=== PATIENT | female | born 1940 | race Caucasian/White ===

== ENCOUNTER 2018-02-23 09:55 | Day surgery (SDC) | payer MEDICARE ==
[2018-02-22 11:50] VITALS: BMI 44.7
[2018-02-23 11:24] LABS: Anion Gap 14 mmol/L (10-20); BUN (Urea Nitrogen) 26 mg/dL (9.8-20.1); Calc. Creatinine Clearance 62 mL/min (70-130); Calcium 9.9 mg/dL (7.8-10.44); Carbon Dioxide 27 mmol/L (23-31); Chloride 103 mmol/L (98-107); Estimated GFR-MDRD 39; Glucose 155 mg/dL (83-110); Potassium 4.1 mmol/L (3.5-5.1); Sodium 140 mmol/L (136-145)
--- NOTE | 2018-02-23 13:22 | EKG ---
Test Reason : PREOP Blood Pressure : / mmHG Vent. Rate : 060 BPM Atrial Rate : 060 BPM P-R Int : 138 ms QRS Dur : 086 ms QT Int : 456 ms P-R-T Axes : 064 -30 023 degrees QTc Int : 456 ms Sinus rhythm with Premature atrial complexes Left axis deviation Abnormal ECG When compared with ECG of 22-SEP-1997 12:02, Premature atrial complexes are now Present Confirmed by CALISTA CARIAS ([id number]) on 02/23/2018 1:22:23 PM Referred By: SUBHASH Confirmed By:CALISTA CARIAS
[2018-02-23] MEDS ORDERED: Morphine 4 MG/ML VIAL ONE (14:33)
--- NOTE | 2018-02-23 15:12 | MRI ---
MRI LUMBAR SPINE WITHOUT CONTRAST: Date: 02/23/18 HISTORY: Radiculopathy. Low back pain. COMPARISON: None. FINDINGS: The aortic contour is not aneurysmal. The kidneys are atrophic. No retroperitoneal adenopathy. The conus medullaris terminates at the superior end plate of L1. There are Modic Type II changes of L3-4. Levels are as follows: T12-L1: Moderate disc desiccation. Moderate facet arthrosis. No neural foraminal or spinal canal narrowing. L1-2: Mild facet arthropathy. Circumferential disc bulge. Mild ligamentum flavum hypertrophy. Spinal canal measures 1.0 cm. Mild bilateral neural foraminal narrowing. L2-3: Moderate to severe facet arthropathy. Circumferential disc bulge. There is moderate left and mild rig ht-sided neural foraminal narrowing. There is abutment of the exiting left-sided nerve root. There is ligamentum flavum hypertrophy. Spinal canal is narrowed to approximately 6.0 mm. L3-4: Severe degenerative disc space height loss. There is anterolisthesis approximately 3.0 mm. Extensive ligamentum flavum hypertrophy. There is impingement upon the thecal sac with the canal measuring less than 4.0 mm. There is moderate left and moderate to severe right-sided neural foraminal narrowing an d abutment exiting traversing nerve roots. L4-5: Moderate degenerative disc space height loss. Circumferential disc osteophyte complex with superimpos ed right lateral recess and subforaminal posterior disc osteophyte complex. There is moderate to frances re right and moderate left-sided neural foraminal narrowing. L5-S1: Mild degenerative disc space height loss. Moderate facet arthrosis. Moderate to severe left-sided and right-sided neural foraminal narrowing with abutment of the traversing nerve roots. Laminectomy changes L4 and L5. IMPRESSION: Extensive spondylosis as described above with multilevel neural foraminal narrowing, as well as spina l canal narrowing. POS: [facility]
== END 2018-02-23 15:37 | disposition home or self-care (01) ==
LOC: SDC/OP 09:55
PROVIDERS: ATTEND Nurse Practitioner Family
DX: M47.26 Other spondylosis with radiculopathy, lumbar region (principal); Z88.0 Allergy status to penicillin; Z88.2 Allergy status to sulfonamides; Z88.8 Allergy status to other drugs, medicaments and biological substances
CPT/HCPCS: 36415; 72148; 93005; 93010; 96374; J2270

== ENCOUNTER 2019-01-07 11:34 | Outpatient (CLI) | payer MEDICARE ==
[~2019-01-07 11:34] MED LIST: ISOVUE-370 76%-LOCM 1 ML ONE
--- NOTE | 2019-01-08 14:47 | CT ---
CT ABDOMEN AND PELVIS WITH CONTRAST: Date: 01/07/19 Multiple axial tomograms obtained through abdomen and pelvis with IV enhancement. INDICATION: Abdominal pain. FINDINGS: Lung bases clear. Liver, spleen, and pancreas are unremarkable. Post cholecystectomy changes. Stomach and duodenum unre markable. Adrenal glands normal. Kidneys show cortical scarring. Dystrophic calcification in posterior right renal cortex. No hydronep hrosis. There is a nonobstructing calculus in the lower pole collecting structures of the right kidne y measuring in the 3 mm range. Ureters are normal caliber. Urinary bladder unremarkable, although the re is dilatation at the urethra bladder junction. Small bowel loops unremarkable. Stool throughout the colon. Diverticulosis of left colon and sigmoid colon. There is a focal fluid dense collection which is circumscribed and somewhat oblong shaped measuring u p to 2.7 cm AP dimension. This is along the wall of the mid sigmoid colon in the left lower quadrant and appears to represent a localized fluid or abscess collection, probably diverticular in origin. No free fluid in the abdomen or pelvis. Aorta is calcified but normal caliber. Evidence of hysterectomy. There is a small umbilical hernia. There is a second anterior abdominal wall hernia just to the right of the umbilicus with abdominal wall defect measuring 1.6 cm. A hernia sac containing mesenteric fat in the subcutaneous tissues measures up to 6-7 cm. Degenerative changes in the spine. Postoperative changes in the spine with pedicle screws. IMPRESSION: 1. Diverticulosis of the left colon and sigmoid colon. A circumscribed fluid dense collection along the wall of the mid sigmoid colon in the left lower quadrant is seen. Circumscribed fluid or abscess collection, probably diverticular in origin, is suspected. 2. Small umbilical hernia and a second anterior abdominal wall hernia to the right umbilicus as desc ribed above. POS: [facility]
== END 2019-01-07 11:35 | disposition home or self-care (01) ==
LOC: BICCT 11:34
PROVIDERS: ATTEND Physician Assistant
DX: R10.9 Unspecified abdominal pain (principal); K57.30 Diverticulosis of large intestine without perforation or abscess without bleeding; K42.9 Umbilical hernia without obstruction or gangrene; K43.9 Ventral hernia without obstruction or gangrene; K63.89 Other specified diseases of intestine
CPT/HCPCS: 74177; 82565; Q9966

== ENCOUNTER 2019-01-24 14:45 | Outpatient (CLI) | payer MEDICARE ==
--- NOTE | 2019-01-24 15:46 | CT ---
CT Lower Ext Lt WO Con History: [Pain. Prior fracture.] Comparison: Ankle radiograph 2017 Findings: Bones: Lateral plate-screw fixation distal fibular fracture. Removal of one of the syndesmo tic screws with fracture of the more craniad syndesmotic screw. Partially-threaded retrograde cannulated screws of the medial malleolus are intact. Evidence of prior rupture of the ATFL. Subtle widening of the syndesmosis. Mild ankle effusion versio n with hindfoot valgus. Healed medial malleolus fracture and posterior malleolar fractures. No acute superimposed fracture or malalignment. Moderate midfoot degenerative changes. Osteopenia the posterior process of the calcaneus. Soft tissues: No subluxation of the peroneal tendons. Type I navicular ossicle. Accessory ossicle bet ween the first and second metatarsal bases. There is lamellar type periosteal bone proliferation along the medial margin distal tibia. Impression: 1. Fracture of the syndesmotic screw with very low-grade lateral talar shift and mild varus angulatio n of the hindfoot. 2. Hypertrophic periosteal new bone formation along the medial margin of the distal tibia suggesting hypertrophic osteoarthropathy. 3. Either accessory ossicle versus calcification Lisfranc ligament between the first and second metat arsal bases. 4. Healed trimalleolar fracture.
== END 2019-01-24 14:46 | disposition home or self-care (01) ==
LOC: BICCT 14:45
PROVIDERS: ATTEND Orthopaedic Surgery
DX: S82.842P Displaced bimalleolar fracture of left lower leg, subsequent encounter for closed fracture with malunion (principal); S92.142D Displaced dome fracture of left talus, subsequent encounter for fracture with routine healing; Z87.81 Personal history of (healed) traumatic fracture

== ENCOUNTER 2019-06-15 09:18 | Outpatient (CLI) | payer MEDICARE ==
--- NOTE | 2019-06-15 11:39 | BD ---
DEXA BONE DENSITY STUDY: Date: 06/15/19 HISTORY: Postmenopausal. 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 The 10 year fracture risk for a major osteoporotic fracture is 22% and for a hip fracture is 5.9%. [facility] are calculated for an untreated patient. POS: [facility]
== END 2019-06-15 09:19 | disposition home or self-care (01) ==
LOC: BICMAMMO 09:18
PROVIDERS: ATTEND Internal Medicine Rheumatology
DX: M81.0 Age-related osteoporosis without current pathological fracture (principal); M85.89 Other specified disorders of bone density and structure, multiple sites
CPT/HCPCS: 77080

== ENCOUNTER 2021-06-25 12:59 | Outpatient (CLI) | payer MEDICARE | END 2021-06-25 13:00 | disposition home or self-care (01) | LOC: BICMAMMO 12:59 | PROVIDERS: ATTEND Internal Medicine Rheumatology | DX: M81.0 Age-related osteoporosis without current pathological fracture (principal); M85.852 Other specified disorders of bone density and structure, left thigh; M85.851 Other specified disorders of bone density and structure, right thigh | CPT/HCPCS: 77080 ==

== ENCOUNTER 2023-08-18 09:53 | Outpatient (CLI) | payer MEDICARE | END 2023-08-18 09:54 | disposition home or self-care (01) | LOC: BICMAMMO 09:53 | PROVIDERS: ATTEND Internal Medicine Rheumatology | DX: M81.0 Age-related osteoporosis without current pathological fracture (principal); M85.851 Other specified disorders of bone density and structure, right thigh | CPT/HCPCS: 77080 ==

== ENCOUNTER 2025-05-07 10:24 | Inpatient (IN) | payer MEDICARE ==
[2025-05-07 12:15] LABS: Hematocrit 29.7 % (36.0-47.0); Hemoglobin 9.4 g/dL (12.0-16.0); Mean Corpuscular Hemoglobin 30.8 pg (27.0-31.0); Mean Corpuscular Volume 97.4 fL (78.0-98.0); Platelet Count 110 10x3/uL (130-400); Red Blood Cell (RBC) Count 3.05 mill/uL (4.20-5.40); White Blood Cell (WBC) Count 8.83 10x3/uL (4.8-10.8)
[2025-05-07 12:30] LABS: ALT (SGPT) 34 U/L (Less than 34); AST (SGOT) 51 U/L (11-34); Albumin 2.6 g/dL (3.1-4.5); Alkaline Phosphatase 111 U/L (40-110); Anion Gap 13 mmol/L (10-20); BUN (Urea Nitrogen) 41 mg/dL (9.8-20.1); Bilirubin, Total 0.4 mg/dL (0.3-1.2); Calc. Creatinine Clearance 0 mL/min (70-130); Calcium 8.4 mg/dL (7.8-10.44); Carbon Dioxide 18 mmol/L (23-31); Chloride 111 mmol/L (98-107); Globulin 2.6 g/dL (2.4-3.5); Glucose 181 mg/dL (83-110); Potassium 4.2 mmol/L (3.5-5.1); Sodium 138 mmol/L (136-145)
[2025-05-07 12:33] LABS: INR-International Normal Ratio 2.0; PTT 45.4 sec (22.9-36.1); Prothrombin Time 23.1 sec (12.0-14.7)
[2025-05-07 12:37] LABS: Anisocytosis SLIGHT = 6-15 cells HPF (0-5); Ovalocytes SLIGHT = 2-5 cells HPF (0-1); Platelet Adequacy Comment Platelets Decreased; Poikilocytosis SLIGHT = 6-15 cells HPF (0-5); Polychromasia SLIGHT = 2-3 cells HPF (0-2)
[2025-05-07] MEDS ORDERED: Acetaminophen 500 MG TAB ONE (12:39)
[2025-05-07 12:41] LABS: Bacteria/HPF 3+ HPF (None Seen); CAUTI Indications for Culture Pelvic or flank pain; Glucose, Urine (Dipstick) Normal (Negative); Leukocyte 500 Leu/uL (Negative); Protein, Urine (Dipstick) 50 mg/dL (Neg-Trace); RBC/HPF 21-50 HPF (0-3); Specific Gravity, Urine 1.017 (1.002-1.036); WBC/HPF Greater than 50 HPF (0-3)
[2025-05-07 12:43] LABS: Urine Culture Reflex Yes Yes
[2025-05-07] MEDS ORDERED: Bisacodyl 10 MG SUPP PR PRN (13:45)
[2025-05-07] MEDS ORDERED: Senokot S 8.6-50 MG TAB PO PRN (13:45)
[2025-05-07] MEDS ORDERED: Ondansetron PF 4 MG/2 ML Vial IVP PRN (13:45)
[2025-05-07] MEDS ORDERED: Dextrose 50% Abboject 50 ML SYRINGE SLOW IVP PRN (13:51)
[2025-05-07] MEDS ORDERED: Glucagon 1 MG/ML KIT IM PRN (13:51)
[2025-05-07] MEDS: VANCOMYCIN 2 GRAM/400 ML BAG 2 GM in Premix 1 BAG IVPB SCH ×2 (15:07→18:44)
[2025-05-07 15:47] LABS: Magnesium 1.6 mg/dL (1.6-2.6)
[2025-05-07 17:37] VITALS: BMI 43.7
[2025-05-07] MEDS ORDERED: Vancomycin Dose by Levels Sliding Scale (Wt > 99) FS SCH (18:15)
[2025-05-07] MEDS: Magnesium 2 GM/50 ML(in water) 2 GM in Premix 1 BAG IVPB SCH (18:43)
[2025-05-07] MEDS ORDERED: Vancomycin 1 GM in Sodium Chloride 0.9% 250 ML 300 ML IVPB SCH (21:00)
[2025-05-07] MEDS: Insulin Glargine 30 UNITS/0.3 ML VIAL SC SCH (21:33)
[2025-05-07] MEDS: Allopurinol 100 MG TAB PO SCH (21:33)
[2025-05-08 06:48] LABS: #Basophils Less than 0.03 10x3/uL (0.0-0.2); #Eosinophils Less than 0.03 10x3/uL (0.0-0.7); #Monocytes 0.82 10x3/uL (0.11-0.59); #Neutrophils 7.24 10x3/uL (1.40-6.50); %Basophils 0.2 % (0.0-1.0); %Eosinophils 0.1 % (0.0-10.0); %Lymphocytes 11.1 % (21.0-51.0); %Monocytes 9.0 % (0.0-10.0); %Neutrophils 79.2 % (42.0-75.0); Hematocrit 32.3 % (36.0-47.0); Hemoglobin 9.8 g/dL (12.0-16.0); Mean Corpuscular Hemoglobin 30.2 pg (27.0-31.0); Mean Corpuscular Volume 99.4 fL (78.0-98.0); Platelet Count 124 10x3/uL (130-400); Red Blood Cell (RBC) Count 3.25 mill/uL (4.20-5.40); White Blood Cell (WBC) Count 9.14 10x3/uL (4.8-10.8)
[2025-05-08 07:01] LABS: Vancomycin, Random 23.9 ug/mL (See Comment)
[2025-05-08 07:04] LABS: ALT (SGPT) 25 U/L (Less than 34); AST (SGOT) 38 U/L (11-34); Albumin 2.5 g/dL (3.1-4.5); Alkaline Phosphatase 124 U/L (40-110); Anion Gap 13 mmol/L (10-20); BUN (Urea Nitrogen) 37 mg/dL (9.8-20.1); Bilirubin, Direct 0.3 mg/dL (0.1-0.3); Bilirubin, Total 0.5 mg/dL (0.3-1.2); Calc. Creatinine Clearance 40 mL/min (70-130); Calcium 8.5 mg/dL (7.8-10.44); Carbon Dioxide 20 mmol/L (23-31); Chloride 111 mmol/L (98-107); Glucose 140 mg/dL (83-110); Magnesium 2.2 mg/dL (1.6-2.6); Potassium 4.0 mmol/L (3.5-5.1); Sodium 140 mmol/L (136-145)
[2025-05-08 07:08] LABS: INR-International Normal Ratio 1.8; PTT 45.0 sec (22.9-36.1); Prothrombin Time 20.8 sec (12.0-14.7)
[2025-05-08] MEDS: Colchicine 0.6 MG TAB PO SCH (08:50)
[2025-05-08] MEDS: Metoprolol Succinate XL 50 MG ER.TAB PO SCH (08:51)
[2025-05-08] MEDS: Multivit, Therapeutic 1 TAB PO SCH (08:51)
[2025-05-08] MEDS: dilTIAZem 30 MG TAB PO SCH (10:45)
[2025-05-08] MEDS: Apixaban 5 MG TAB PO SCH ×2 (10:45→20:55)
[2025-05-08] MEDS: Albumin 25% 25 GM (100 mL) BOT IVPB SCH (11:20)
[2025-05-08] MEDS ORDERED: dilTIAZem 30 MG TAB PO SCH (11:30)
[2025-05-08] MEDS: Senokot S 8.6-50 MG TAB PO SCH (21:13)
[2025-05-09] MEDS: Acetaminophen 325 MG TAB PO PRN (02:19)
[2025-05-09] MEDS: dilTIAZem 30 MG TAB PO PRN (02:35)
[2025-05-09 06:19] LABS: Anion Gap 13 mmol/L (10-20); BUN (Urea Nitrogen) 32 mg/dL (9.8-20.1); Calc. Creatinine Clearance 48 mL/min (70-130); Calcium 8.5 mg/dL (7.8-10.44); Carbon Dioxide 18 mmol/L (23-31); Chloride 111 mmol/L (98-107); Glucose 196 mg/dL (83-110); Magnesium 2.0 mg/dL (1.6-2.6); Potassium 3.7 mmol/L (3.5-5.1); Sodium 138 mmol/L (136-145)
[2025-05-09 07:00] LABS: #Basophils Less than 0.03 10x3/uL (0.0-0.2); #Eosinophils 0.04 10x3/uL (0.0-0.7); #Monocytes 1.02 10x3/uL (0.11-0.59); #Neutrophils 6.72 10x3/uL (1.40-6.50); %Basophils 0.2 % (0.0-1.0); %Eosinophils 0.4 % (0.0-10.0); %Lymphocytes 14.0 % (21.0-51.0); %Monocytes 11.2 % (0.0-10.0); %Neutrophils 73.7 % (42.0-75.0); Hematocrit 28.1 % (36.0-47.0); Hemoglobin 8.7 g/dL (12.0-16.0); Mean Corpuscular Hemoglobin 29.8 pg (27.0-31.0); Mean Corpuscular Volume 96.2 fL (78.0-98.0); Platelet Count 97 10x3/uL (130-400); Red Blood Cell (RBC) Count 2.92 mill/uL (4.20-5.40); White Blood Cell (WBC) Count 9.13 10x3/uL (4.8-10.8)
[2025-05-09] MEDS: Magnesium 2 GM/50 ML(in water) 2 GM in Premix 1 BAG IVPB SCH (09:44)
[2025-05-09] MEDS ORDERED: Furosemide 40 MG TAB PO SCH (13:30)
[2025-05-09] MEDS: Furosemide 40 MG (4 mL) VIAL SLOW IVP SCH ×2 (13:49→18:27)
[2025-05-09] MEDS: Furosemide 40 MG (4 mL) VIAL ONE (15:50)
[2025-05-09 15:55] LABS: Anion Gap 16 mmol/L (10-20); BUN (Urea Nitrogen) 31 mg/dL (9.8-20.1); Calc. Creatinine Clearance 51 mL/min (70-130); Calcium 9.3 mg/dL (7.8-10.44); Carbon Dioxide 16 mmol/L (23-31); Chloride 108 mmol/L (98-107); Glucose 323 mg/dL (83-110); Magnesium 2.3 mg/dL (1.6-2.6); Potassium 4.1 mmol/L (3.5-5.1); Sodium 136 mmol/L (136-145)
[2025-05-09] MEDS ORDERED: Amiodarone 150 MG, Admixture Fee 1 EACH in Dextrose 5% in Water 100 ML IVPB SCH (16:00)
[2025-05-09] MEDS: dilTIAZem 25 MG/5 ML VIAL SLOW IVP SCH (16:26)
[2025-05-09] MEDS: Digoxin 0.5 MG/2 ML AMP SLOW IVP SCH (16:26)
[2025-05-09] MEDS: Diltiazem HCl/D5W 125 MG in Premix 1 BAG IVPB SCH (17:24)
[2025-05-09] MEDS: Ipratropium Bromide 2.5 ml Neb NEB SCH (18:17)
[2025-05-09] MEDS: Acetaminophen 325 MG TAB PO SCH (21:31)
[2025-05-10 04:57] LABS: #Basophils Less than 0.03 10x3/uL (0.0-0.2); #Eosinophils Less than 0.03 10x3/uL (0.0-0.7); #Monocytes 0.81 10x3/uL (0.11-0.59); #Neutrophils 5.43 10x3/uL (1.40-6.50); %Basophils 0.1 % (0.0-1.0); %Eosinophils 0.0 % (0.0-10.0); %Lymphocytes 14.3 % (21.0-51.0); %Monocytes 11.0 % (0.0-10.0); %Neutrophils 74.1 % (42.0-75.0); Hematocrit 30.4 % (36.0-47.0); Hemoglobin 9.6 g/dL (12.0-16.0); Mean Corpuscular Hemoglobin 30.0 pg (27.0-31.0); Mean Corpuscular Volume 95.9 fL (78.0-98.0); Platelet Count 97 10x3/uL (130-400); Red Blood Cell (RBC) Count 3.17 mill/uL (4.20-5.40); White Blood Cell (WBC) Count 7.34 10x3/uL (4.8-10.8)
[2025-05-10 06:12] LABS: Anion Gap 14 mmol/L (10-20); BUN (Urea Nitrogen) 33 mg/dL (9.8-20.1); Calc. Creatinine Clearance 51 mL/min (70-130); Calcium 9.2 mg/dL (7.8-10.44); Carbon Dioxide 22 mmol/L (23-31); Chloride 109 mmol/L (98-107); Glucose 226 mg/dL (83-110); Magnesium 1.9 mg/dL (1.6-2.6); Potassium 3.2 mmol/L (3.5-5.1); Sodium 142 mmol/L (136-145)
[2025-05-10] MEDS: Magnesium 2 GM/50 ML(in water) Premix IVPB SCH (06:46)
[2025-05-10] MEDS: Potassium Bicarbonate/Cit Ac 20 MEQ TAB PO SCH (08:05)
[2025-05-10] MEDS: Diltiazem HCl/D5W 125 MG in Premix 1 BAG IVPB SCH (09:38)
[2025-05-10 15:05] LABS: Potassium 4.0 mmol/L (3.5-5.1)
[2025-05-11] MEDS: Digoxin 0.5 MG/2 ML AMP SLOW IVP SCH (03:37)
[2025-05-11 05:55] LABS: #Basophils 0.04 10x3/uL (0.0-0.2); #Eosinophils 0.10 10x3/uL (0.0-0.7); #Monocytes 0.62 10x3/uL (0.11-0.59); #Neutrophils 6.43 10x3/uL (1.40-6.50); %Basophils 0.5 % (0.0-1.0); %Eosinophils 1.2 % (0.0-10.0); %Lymphocytes 13.5 % (21.0-51.0); %Monocytes 7.4 % (0.0-10.0); %Neutrophils 77.0 % (42.0-75.0); Hematocrit 31.7 % (36.0-47.0); Hemoglobin 9.9 g/dL (12.0-16.0); Mean Corpuscular Hemoglobin 29.8 pg (27.0-31.0); Mean Corpuscular Volume 95.5 fL (78.0-98.0); Platelet Count 157 10x3/uL (130-400); Red Blood Cell (RBC) Count 3.32 mill/uL (4.20-5.40); White Blood Cell (WBC) Count 8.35 10x3/uL (4.8-10.8)
[2025-05-11 06:20] LABS: ALT (SGPT) 48 U/L (Less than 34); AST (SGOT) 86 U/L (11-34); Albumin 2.9 g/dL (3.1-4.5); Alkaline Phosphatase 153 U/L (40-110); Anion Gap 14 mmol/L (10-20); BUN (Urea Nitrogen) 35 mg/dL (9.8-20.1); Bilirubin, Total 1.0 mg/dL (0.3-1.2); Calc. Creatinine Clearance 54 mL/min (70-130); Calcium 9.3 mg/dL (7.8-10.44); Carbon Dioxide 24 mmol/L (23-31); Chloride 106 mmol/L (98-107); Globulin 2.7 g/dL (2.4-3.5); Glucose 189 mg/dL (83-110); Magnesium 2.0 mg/dL (1.6-2.6); Potassium 3.9 mmol/L (3.5-5.1); Sodium 140 mmol/L (136-145)
[2025-05-11] MEDS: Magnesium 2 GM/50 ML(in water) 2 GM in Premix 1 BAG IVPB SCH (06:45)
[2025-05-11] MEDS: PHOS-NAK 1 PKT PACK PO SCH (09:12)
[2025-05-11] MEDS: Metoprolol Succinate XL 25 MG ER.TAB PO SCH (17:25)
[2025-05-11] MEDS: Senokot S 8.6-50 MG TAB PO SCH (20:29)
[2025-05-11] MEDS: Melatonin 3 MG TAB PO PRN (20:30)
[2025-05-12 04:39] LABS: #Basophils 0.04 10x3/uL (0.0-0.2); #Eosinophils 0.40 10x3/uL (0.0-0.7); #Monocytes 0.61 10x3/uL (0.11-0.59); #Neutrophils 6.04 10x3/uL (1.40-6.50); %Basophils 0.5 % (0.0-1.0); %Eosinophils 4.7 % (0.0-10.0); %Lymphocytes 15.3 % (21.0-51.0); %Monocytes 7.2 % (0.0-10.0); %Neutrophils 71.7 % (42.0-75.0); Hematocrit 32.5 % (36.0-47.0); Hemoglobin 10.0 g/dL (12.0-16.0); Mean Corpuscular Hemoglobin 29.2 pg (27.0-31.0); Mean Corpuscular Volume 94.8 fL (78.0-98.0); Platelet Count 176 10x3/uL (130-400); Red Blood Cell (RBC) Count 3.43 mill/uL (4.20-5.40); White Blood Cell (WBC) Count 8.43 10x3/uL (4.8-10.8)
[2025-05-12 05:08] LABS: ALT (SGPT) 67 U/L (Less than 34); AST (SGOT) 114 U/L (11-34); Albumin 2.7 g/dL (3.1-4.5); Alkaline Phosphatase 154 U/L (40-110); Anion Gap 10 mmol/L (10-20); BUN (Urea Nitrogen) 38 mg/dL (9.8-20.1); Bilirubin, Total 0.8 mg/dL (0.3-1.2); Calc. Creatinine Clearance 59 mL/min (70-130); Calcium 9.0 mg/dL (7.8-10.44); Carbon Dioxide 24 mmol/L (23-31); Chloride 109 mmol/L (98-107); Globulin 2.7 g/dL (2.4-3.5); Glucose 130 mg/dL (83-110); Magnesium 2.1 mg/dL (1.6-2.6); Potassium 4.0 mmol/L (3.5-5.1); Sodium 139 mmol/L (136-145)
[2025-05-12] MEDS: Metoprolol Succinate XL 25 MG ER.TAB PO SCH (08:42)
[2025-05-12] MEDS: Furosemide 40 MG TAB PO SCH (08:43)
[2025-05-12] MEDS ORDERED: Lactulose 20 GM (30 mL) UDCUP PO PRN (15:34)
[2025-05-12] MEDS: Lactulose 20 GM (30 mL) UDCUP PO SCH (16:14)
[2025-05-12 18:40] VITALS: BMI 44.3
[2025-05-13 05:22] LABS: #Basophils 0.03 10x3/uL (0.0-0.2); #Eosinophils 0.53 10x3/uL (0.0-0.7); #Monocytes 0.66 10x3/uL (0.11-0.59); #Neutrophils 8.27 10x3/uL (1.40-6.50); %Basophils 0.3 % (0.0-1.0); %Eosinophils 4.8 % (0.0-10.0); %Lymphocytes 13.4 % (21.0-51.0); %Monocytes 6.0 % (0.0-10.0); %Neutrophils 75.0 % (42.0-75.0); Hematocrit 33.2 % (36.0-47.0); Hemoglobin 10.5 g/dL (12.0-16.0); Mean Corpuscular Hemoglobin 29.9 pg (27.0-31.0); Mean Corpuscular Volume 94.6 fL (78.0-98.0); Platelet Count 223 10x3/uL (130-400); Red Blood Cell (RBC) Count 3.51 mill/uL (4.20-5.40); White Blood Cell (WBC) Count 11.02 10x3/uL (4.8-10.8)
[2025-05-13 05:51] LABS: ALT (SGPT) 67 U/L (Less than 34); AST (SGOT) 86 U/L (11-34); Albumin 2.7 g/dL (3.1-4.5); Alkaline Phosphatase 164 U/L (40-110); Anion Gap 15 mmol/L (10-20); BUN (Urea Nitrogen) 39 mg/dL (9.8-20.1); Bilirubin, Total 0.6 mg/dL (0.3-1.2); Calc. Creatinine Clearance 60 mL/min (70-130); Calcium 9.5 mg/dL (7.8-10.44); Carbon Dioxide 24 mmol/L (23-31); Chloride 105 mmol/L (98-107); Globulin 2.9 g/dL (2.4-3.5); Glucose 152 mg/dL (83-110); Magnesium 2.0 mg/dL (1.6-2.6); Potassium 3.8 mmol/L (3.5-5.1); Sodium 140 mmol/L (136-145)
[2025-05-13] MEDS: Magnesium 2 GM/50 ML(in water) 2 GM in Premix 1 BAG IVPB SCH (09:49)
[2025-05-14 05:14] LABS: #Basophils 0.03 10x3/uL (0.0-0.2); #Eosinophils 0.63 10x3/uL (0.0-0.7); #Monocytes 0.55 10x3/uL (0.11-0.59); #Neutrophils 5.17 10x3/uL (1.40-6.50); %Basophils 0.4 % (0.0-1.0); %Eosinophils 7.6 % (0.0-10.0); %Lymphocytes 21.5 % (21.0-51.0); %Monocytes 6.7 % (0.0-10.0); %Neutrophils 62.7 % (42.0-75.0); Hematocrit 33.8 % (36.0-47.0); Hemoglobin 10.7 g/dL (12.0-16.0); Mean Corpuscular Hemoglobin 30.0 pg (27.0-31.0); Mean Corpuscular Volume 94.7 fL (78.0-98.0); Platelet Count 263 10x3/uL (130-400); Red Blood Cell (RBC) Count 3.57 mill/uL (4.20-5.40); White Blood Cell (WBC) Count 8.24 10x3/uL (4.8-10.8)
[2025-05-14 05:29] LABS: ALT (SGPT) 56 U/L (Less than 34); AST (SGOT) 59 U/L (11-34); Albumin 2.6 g/dL (3.1-4.5); Alkaline Phosphatase 155 U/L (40-110); Anion Gap 11 mmol/L (10-20); BUN (Urea Nitrogen) 40 mg/dL (9.8-20.1); Bilirubin, Total 0.5 mg/dL (0.3-1.2); Calc. Creatinine Clearance 48 mL/min (70-130); Calcium 9.6 mg/dL (7.8-10.44); Carbon Dioxide 29 mmol/L (23-31); Chloride 101 mmol/L (98-107); Globulin 2.9 g/dL (2.4-3.5); Glucose 179 mg/dL (83-110); Magnesium 2.0 mg/dL (1.6-2.6); Potassium 3.9 mmol/L (3.5-5.1); Sodium 137 mmol/L (136-145)
[2025-05-14] MEDS: Magnesium 2 GM/50 ML(in water) 2 GM in Premix 1 BAG IVPB SCH (09:58)
[2025-05-14 15:46] VITALS: BP 151/72; TEMP 98.5
== END 2025-05-14 18:15 | disposition swing bed (61) | DRG 871 ==
LOC: ERS 10:24 → SUATTDRO 10:24 → SURG A 13:48 → IMCU/EMU 05-09 14:20 → 2NO 05-11 14:30
PROVIDERS: ADMIT Family Medicine; ATTEND Student in an Organized Health Care Education/Training Program
PROC: 3E03329 Introduction of Other Anti-infective into Peripheral Vein, Percutaneous Approach (ICD-10-PCS; principal; 2025-05-07)
PROC: 0T9B70Z Drainage of Bladder with Drainage Device, Via Natural or Artificial Opening (ICD-10-PCS; principal; 2025-05-07)
PROC: 5A09357 Assistance with Respiratory Ventilation, Less than 24 Consecutive Hours, Continuous Positive Airway Pressure (ICD-10-PCS; principal; 2025-05-07)
PROC: 30233J1 Transfusion of Nonautologous Serum Albumin into Peripheral Vein, Percutaneous Approach (ICD-10-PCS; 2025-05-07)
DX: A41.51 Sepsis due to Escherichia coli [E. coli] (principal); I50.21 Acute systolic (congestive) heart failure; J96.01 Acute respiratory failure with hypoxia; N39.0 Urinary tract infection, site not specified; N17.9 Acute kidney failure, unspecified; I13.0 Hypertensive heart and chronic kidney disease with heart failure and stage 1 through stage 4 chronic kidney disease, or unspecified chronic kidney disease; I42.9 Cardiomyopathy, unspecified; Z16.12 Extended spectrum beta lactamase (ESBL) resistance; Z68.41 Body mass index [BMI] 40.0-44.9, adult; E78.5 Hyperlipidemia, unspecified; E11.22 Type 2 diabetes mellitus with diabetic chronic kidney disease; M10.9 Gout, unspecified; E83.42 Hypomagnesemia; N20.0 Calculus of kidney; E03.9 Hypothyroidism, unspecified; I48.0 Paroxysmal atrial fibrillation; I34.0 Nonrheumatic mitral (valve) insufficiency; E87.6 Hypokalemia; L89.151 Pressure ulcer of sacral region, stage 1; E83.39 Other disorders of phosphorus metabolism; Z79.01 Long term (current) use of anticoagulants; Z79.899 Other long term (current) drug therapy; Z88.0 Allergy status to penicillin; Z88.2 Allergy status to sulfonamides; Z88.8 Allergy status to other drugs, medicaments and biological substances; Z79.4 Long term (current) use of insulin; R65.20 Severe sepsis without septic shock; E66.01 Morbid (severe) obesity due to excess calories; N18.32 Chronic kidney disease, stage 3b
CPT/HCPCS: 36415; 36416; 71045; 74176; 76770; 80048; 80053; 80076; 80202; 81001; 83036; 83605; 83735; 83880; 84100; 84443; 84484; 85025; 85610; 85730; 86850; 86900; 86901; 87040; 87077; 87086; 87149; 87186; 87426; 93005; 93010; 93306; 94640; 94660; 94760; 96374; J1160; J1815; J1940; J2185; J2543; J3375; J3475; J3480; J7030; J7120; J7620; P9047

== ENCOUNTER 2025-06-05 18:41 | Inpatient (IN) | payer MEDICARE ==
[2025-06-05 21:54] LABS: ALT (SGPT) 139 U/L (Less than 34); AST (SGOT) 236 U/L (11-34); Albumin 3.9 g/dL (3.1-4.5); Alkaline Phosphatase 207 U/L (40-110); Anion Gap 18 mmol/L (10-20); BUN (Urea Nitrogen) 36 mg/dL (9.8-20.1); Bilirubin, Total 0.4 mg/dL (0.3-1.2); Calc. Creatinine Clearance 0 mL/min (70-130); Calcium 11.5 mg/dL (7.8-10.44); Carbon Dioxide 24 mmol/L (23-31); Chloride 98 mmol/L (98-107); Globulin 3.4 g/dL (2.4-3.5); Glucose 250 mg/dL (83-110); Potassium 3.9 mmol/L (3.5-5.1); Sodium 136 mmol/L (136-145)
[2025-06-05 22:23] LABS: #Basophils 0.04 10x3/uL (0.0-0.2); #Eosinophils 0.26 10x3/uL (0.0-0.7); #Monocytes 0.53 10x3/uL (0.11-0.59); #Neutrophils 4.15 10x3/uL (1.40-6.50); %Basophils 0.6 % (0.0-1.0); %Eosinophils 3.7 % (0.0-10.0); %Lymphocytes 29.4 % (21.0-51.0); %Monocytes 7.5 % (0.0-10.0); %Neutrophils 58.5 % (42.0-75.0); Hematocrit 27.8 % (36.0-47.0); Hemoglobin 8.8 g/dL (12.0-16.0); Mean Corpuscular Hemoglobin 30.2 pg (27.0-31.0); Mean Corpuscular Volume 95.5 fL (78.0-98.0); Platelet Adequacy Comment Platelets Normal; Platelet Count 141 10x3/uL (130-400); Polychromasia SLIGHT = 2-3 cells HPF (0-2); Red Blood Cell (RBC) Count 2.91 mill/uL (4.20-5.40); White Blood Cell (WBC) Count 7.08 10x3/uL (4.8-10.8)
[2025-06-05 22:34] LABS: Bacteria/HPF 2+ HPF (None Seen); CAUTI Indications for Culture Pelvic or flank pain; Glucose, Urine (Dipstick) 50 mg/dL (Negative); Leukocyte 500 Leu/uL (Negative); Protein, Urine (Dipstick) 10 mg/dL (Neg-Trace); Specific Gravity, Urine 1.009 (1.002-1.036); WBC/HPF Greater than 50 HPF (0-3)
[2025-06-05 22:38] LABS: Urine Culture Reflex Yes Yes
[2025-06-06] MEDS ORDERED: Calcium Carbonate 500 MG ChewTAB PO PRN (01:38)
[2025-06-06] MEDS ORDERED: Senokot S 8.6-50 MG TAB PO PRN (01:38)
[2025-06-06] MEDS ORDERED: Ondansetron PF 4 MG/2 ML Vial IVP PRN (01:38)
[2025-06-06] MEDS ORDERED: Glucagon 1 MG/ML KIT IM PRN (01:41)
[2025-06-06] MEDS ORDERED: Dextrose 50% Abboject 50 ML SYRINGE SLOW IVP PRN (01:41)
[2025-06-06] MEDS ORDERED: Gabapentin 100 MG CAP PO PRN (01:46)
[2025-06-06] MEDS ORDERED: Furosemide 40 MG (4 mL) VIAL ONE (02:22)
[2025-06-06] MEDS: Furosemide 40 MG (4 mL) VIAL SLOW IVP SCH (03:00)
[2025-06-06 03:57] LABS: ALT (SGPT) 118 U/L (Less than 34); AST (SGOT) 163 U/L (11-34); Albumin 3.7 g/dL (3.1-4.5); Alkaline Phosphatase 190 U/L (40-110); Anion Gap 17 mmol/L (10-20); BUN (Urea Nitrogen) 35 mg/dL (9.8-20.1); Bilirubin, Total 0.5 mg/dL (0.3-1.2); Calc. Creatinine Clearance 0 mL/min (70-130); Calcium 11.6 mg/dL (7.8-10.44); Carbon Dioxide 24 mmol/L (23-31); Chloride 99 mmol/L (98-107); Globulin 3.1 g/dL (2.4-3.5); Glucose 226 mg/dL (83-110); Iron 39 ug/dL (50-170); Iron Binding Capacity, Total 256 mcg/dL (265-497); Potassium 3.9 mmol/L (3.5-5.1); Sodium 136 mmol/L (136-145)
[2025-06-06 04:02] LABS: Iron 39 ug/dL (50-170); Iron Binding Capacity, Total 260 mcg/dL (265-497)
[2025-06-06 07:01] LABS: #Basophils 0.03 10x3/uL (0.0-0.2); #Eosinophils 0.22 10x3/uL (0.0-0.7); #Monocytes 0.47 10x3/uL (0.11-0.59); #Neutrophils 4.29 10x3/uL (1.40-6.50); %Basophils 0.5 % (0.0-1.0); %Eosinophils 3.4 % (0.0-10.0); %Lymphocytes 21.3 % (21.0-51.0); %Monocytes 7.4 % (0.0-10.0); %Neutrophils 67.2 % (42.0-75.0); Hematocrit 37.4 % (36.0-47.0); Hemoglobin 11.5 g/dL (12.0-16.0); Mean Corpuscular Hemoglobin 29.4 pg (27.0-31.0); Mean Corpuscular Volume 95.7 fL (78.0-98.0); Platelet Count 177 10x3/uL (130-400); Red Blood Cell (RBC) Count 3.91 mill/uL (4.20-5.40); White Blood Cell (WBC) Count 6.38 10x3/uL (4.8-10.8)
[2025-06-06 08:39] VITALS: BMI 42.5
[2025-06-06] MEDS ORDERED: Apixaban 5 MG TAB ONE (08:43)
[2025-06-06] MEDS: Allopurinol 100 MG TAB PO SCH (08:59)
[2025-06-06] MEDS: Apixaban 2.5 MG TAB PO SCH (08:59)
[2025-06-06] MEDS: Cholecalciferol 1,000 UNITS (25 MCG) TAB PO SCH (09:55)
[2025-06-06] MEDS: Metoprolol Succinate XL 25 MG ER.TAB PO SCH (09:55)
[2025-06-06] MEDS: Colchicine 0.6 MG TAB PO SCH (09:55)
[2025-06-06 15:48] LABS: Magnesium 1.8 mg/dL (1.6-2.6)
[2025-06-06] MEDS: Insulin Glargine 30 UNITS/0.3 ML VIAL SC SCH (20:39)
[2025-06-07 06:02] LABS: Anion Gap 16 mmol/L (10-20); BUN (Urea Nitrogen) 31 mg/dL (9.8-20.1); Calc. Creatinine Clearance 41 mL/min (70-130); Calcium 10.8 mg/dL (7.8-10.44); Carbon Dioxide 27 mmol/L (23-31); Chloride 102 mmol/L (98-107); Glucose 189 mg/dL (83-110); Potassium 3.5 mmol/L (3.5-5.1); Sodium 141 mmol/L (136-145)
[2025-06-07 07:00] LABS: #Basophils Less than 0.03 10x3/uL (0.0-0.2); #Eosinophils 0.23 10x3/uL (0.0-0.7); #Monocytes 0.55 10x3/uL (0.11-0.59); #Neutrophils 3.98 10x3/uL (1.40-6.50); %Basophils 0.3 % (0.0-1.0); %Eosinophils 3.5 % (0.0-10.0); %Lymphocytes 27.8 % (21.0-51.0); %Monocytes 8.3 % (0.0-10.0); %Neutrophils 59.9 % (42.0-75.0); Hematocrit 35.4 % (36.0-47.0); Hemoglobin 11.0 g/dL (12.0-16.0); Mean Corpuscular Hemoglobin 29.6 pg (27.0-31.0); Mean Corpuscular Volume 95.2 fL (78.0-98.0); Platelet Count 180 10x3/uL (130-400); Red Blood Cell (RBC) Count 3.72 mill/uL (4.20-5.40); White Blood Cell (WBC) Count 6.63 10x3/uL (4.8-10.8)
[2025-06-07] MEDS: Estrogens, Conjugated 30 GM TUBE VAG SCH (08:25)
[2025-06-08 06:12] LABS: #Basophils 0.04 10x3/uL (0.0-0.2); #Eosinophils 0.40 10x3/uL (0.0-0.7); #Monocytes 0.63 10x3/uL (0.11-0.59); #Neutrophils 4.62 10x3/uL (1.40-6.50); %Basophils 0.5 % (0.0-1.0); %Eosinophils 5.2 % (0.0-10.0); %Lymphocytes 25.7 % (21.0-51.0); %Monocytes 8.2 % (0.0-10.0); %Neutrophils 60.0 % (42.0-75.0); Hematocrit 37.8 % (36.0-47.0); Hemoglobin 11.4 g/dL (12.0-16.0); Mean Corpuscular Hemoglobin 28.9 pg (27.0-31.0); Mean Corpuscular Volume 95.9 fL (78.0-98.0); Platelet Count 171 10x3/uL (130-400); Red Blood Cell (RBC) Count 3.94 mill/uL (4.20-5.40); White Blood Cell (WBC) Count 7.70 10x3/uL (4.8-10.8)
[2025-06-08 06:26] LABS: Anion Gap 12 mmol/L (10-20); BUN (Urea Nitrogen) 25 mg/dL (9.8-20.1); Calc. Creatinine Clearance 54 mL/min (70-130); Calcium 11.0 mg/dL (7.8-10.44); Carbon Dioxide 29 mmol/L (23-31); Chloride 106 mmol/L (98-107); Glucose 107 mg/dL (83-110); Potassium 4.1 mmol/L (3.5-5.1); Sodium 143 mmol/L (136-145)
[2025-06-08] MEDS: Apixaban 5 MG TAB PO SCH (20:32)
[2025-06-08] MEDS: Insulin Glargine 30 UNITS/0.3 ML VIAL SC SCH (20:34)
[2025-06-09 05:57] LABS: #Basophils 0.05 10x3/uL (0.0-0.2); #Eosinophils 0.42 10x3/uL (0.0-0.7); #Monocytes 0.48 10x3/uL (0.11-0.59); #Neutrophils 3.04 10x3/uL (1.40-6.50); %Basophils 0.8 % (0.0-1.0); %Eosinophils 6.7 % (0.0-10.0); %Lymphocytes 36.0 % (21.0-51.0); %Monocytes 7.7 % (0.0-10.0); %Neutrophils 48.6 % (42.0-75.0); Hematocrit 38.5 % (36.0-47.0); Hemoglobin 11.8 g/dL (12.0-16.0); Mean Corpuscular Hemoglobin 29.6 pg (27.0-31.0); Mean Corpuscular Volume 96.5 fL (78.0-98.0); Platelet Count 187 10x3/uL (130-400); Red Blood Cell (RBC) Count 3.99 mill/uL (4.20-5.40); White Blood Cell (WBC) Count 6.25 10x3/uL (4.8-10.8)
[2025-06-09 06:03] LABS: Anion Gap 11 mmol/L (10-20); BUN (Urea Nitrogen) 21 mg/dL (9.8-20.1); Calc. Creatinine Clearance 61 mL/min (70-130); Calcium 10.3 mg/dL (7.8-10.44); Carbon Dioxide 31 mmol/L (23-31); Chloride 105 mmol/L (98-107); Glucose 100 mg/dL (83-110); Potassium 3.3 mmol/L (3.5-5.1); Sodium 144 mmol/L (136-145)
[2025-06-09] MEDS: Furosemide 40 MG TAB PO SCH (08:32)
[2025-06-09] MEDS: Enoxaparin 40 MG (0.4 mL) SYRINGE SC SCH (11:41)
[2025-06-09] MEDS: Fluconazole 100 MG TAB PO SCH (19:02)
[2025-06-10 04:39] LABS: #Basophils 0.05 10x3/uL (0.0-0.2); #Eosinophils 0.32 10x3/uL (0.0-0.7); #Monocytes 0.60 10x3/uL (0.11-0.59); #Neutrophils 2.73 10x3/uL (1.40-6.50); %Basophils 0.8 % (0.0-1.0); %Eosinophils 4.9 % (0.0-10.0); %Lymphocytes 42.7 % (21.0-51.0); %Monocytes 9.3 % (0.0-10.0); %Neutrophils 42.1 % (42.0-75.0); Hematocrit 38.9 % (36.0-47.0); Hemoglobin 12.2 g/dL (12.0-16.0); Mean Corpuscular Hemoglobin 29.7 pg (27.0-31.0); Mean Corpuscular Volume 94.6 fL (78.0-98.0); Platelet Count 194 10x3/uL (130-400); Red Blood Cell (RBC) Count 4.11 mill/uL (4.20-5.40); White Blood Cell (WBC) Count 6.48 10x3/uL (4.8-10.8)
[2025-06-10 04:54] LABS: Anion Gap 15 mmol/L (10-20); BUN (Urea Nitrogen) 23 mg/dL (9.8-20.1); Calc. Creatinine Clearance 60 mL/min (70-130); Calcium 10.1 mg/dL (7.8-10.44); Carbon Dioxide 27 mmol/L (23-31); Chloride 105 mmol/L (98-107); Glucose 116 mg/dL (83-110); Potassium 3.7 mmol/L (3.5-5.1); Sodium 143 mmol/L (136-145)
[2025-06-10] MEDS: Enoxaparin 40 MG (0.4 mL) SYRINGE SC SCH (08:17)
[2025-06-11 04:23] LABS: #Basophils 0.05 10x3/uL (0.0-0.2); #Eosinophils 0.27 10x3/uL (0.0-0.7); #Monocytes 0.63 10x3/uL (0.11-0.59); #Neutrophils 3.25 10x3/uL (1.40-6.50); %Basophils 0.7 % (0.0-1.0); %Eosinophils 4.0 % (0.0-10.0); %Lymphocytes 37.1 % (21.0-51.0); %Monocytes 9.4 % (0.0-10.0); %Neutrophils 48.7 % (42.0-75.0); Hematocrit 40.3 % (36.0-47.0); Hemoglobin 12.5 g/dL (12.0-16.0); Mean Corpuscular Hemoglobin 29.8 pg (27.0-31.0); Mean Corpuscular Volume 96.0 fL (78.0-98.0); Platelet Count 211 10x3/uL (130-400); Red Blood Cell (RBC) Count 4.20 mill/uL (4.20-5.40); White Blood Cell (WBC) Count 6.69 10x3/uL (4.8-10.8)
[2025-06-11 04:47] LABS: Anion Gap 15 mmol/L (10-20); BUN (Urea Nitrogen) 28 mg/dL (9.8-20.1); Calc. Creatinine Clearance 47 mL/min (70-130); Calcium 10.5 mg/dL (7.8-10.44); Carbon Dioxide 27 mmol/L (23-31); Chloride 105 mmol/L (98-107); Glucose 117 mg/dL (83-110); Potassium 4.1 mmol/L (3.5-5.1); Sodium 143 mmol/L (136-145)
[2025-06-12] MEDS ORDERED: Rocuronium Bromide 10 MG/ML (10ML VIAL) ONE (06:55)
[2025-06-12] MEDS ORDERED: fentaNYL PF 100 MCG/2 ML SYRINGE ONE ×2 (06:55→08:39)
[2025-06-12] MEDS ORDERED: PROPOFOL 20 ML ONE (06:55)
[2025-06-12] MEDS ORDERED: Ondansetron PF 4 MG/2 ML Vial ONE (06:55)
[2025-06-12] MEDS ORDERED: Lidocaine 1% PF 5 ML VIAL ONE (06:55)
[2025-06-12] MEDS ORDERED: Lidocaine 2% 6 ML (Jelly) SYR ONE (06:59)
[2025-06-12 07:09] LABS: Anion Gap 14 mmol/L (10-20); BUN (Urea Nitrogen) 27 mg/dL (9.8-20.1); Calc. Creatinine Clearance 53 mL/min (70-130); Calcium 10.5 mg/dL (7.8-10.44); Carbon Dioxide 27 mmol/L (23-31); Chloride 105 mmol/L (98-107); Glucose 138 mg/dL (83-110); Potassium 4.1 mmol/L (3.5-5.1); Sodium 142 mmol/L (136-145)
[2025-06-12 07:10] LABS: #Basophils 0.06 10x3/uL (0.0-0.2); #Eosinophils 0.27 10x3/uL (0.0-0.7); #Monocytes 0.58 10x3/uL (0.11-0.59); #Neutrophils 2.74 10x3/uL (1.40-6.50); %Basophils 1.0 % (0.0-1.0); %Eosinophils 4.3 % (0.0-10.0); %Lymphocytes 41.6 % (21.0-51.0); %Monocytes 9.3 % (0.0-10.0); %Neutrophils 43.6 % (42.0-75.0); Hematocrit 41.0 % (36.0-47.0); Hemoglobin 12.5 g/dL (12.0-16.0); Mean Corpuscular Hemoglobin 29.3 pg (27.0-31.0); Mean Corpuscular Volume 96.0 fL (78.0-98.0); Platelet Count 205 10x3/uL (130-400); Red Blood Cell (RBC) Count 4.27 mill/uL (4.20-5.40); White Blood Cell (WBC) Count 6.27 10x3/uL (4.8-10.8)
[2025-06-12] MEDS ORDERED: Metoprolol Tartrate 5 MG (5 mL) VIAL ONE (07:43)
[2025-06-12] MEDS ORDERED: SUGAMMADEX SODIUM 200 MG/2 ML VIAL ONE ×2 (08:16→08:17)
[2025-06-12] MEDS: Acetaminophen 325 MG TAB PO PRN (16:47)
[2025-06-12] MEDS: Melatonin 3 MG TAB PO PRN (21:33)
[2025-06-13 05:49] LABS: #Basophils Less than 0.03 10x3/uL (0.0-0.2); #Eosinophils Less than 0.03 10x3/uL (0.0-0.7); #Monocytes 0.28 10x3/uL (0.11-0.59); #Neutrophils 7.42 10x3/uL (1.40-6.50); %Basophils 0.1 % (0.0-1.0); %Eosinophils 0.0 % (0.0-10.0); %Lymphocytes 14.5 % (21.0-51.0); %Monocytes 3.1 % (0.0-10.0); %Neutrophils 82.0 % (42.0-75.0); Hematocrit 40.4 % (36.0-47.0); Hemoglobin 12.5 g/dL (12.0-16.0); Mean Corpuscular Hemoglobin 28.9 pg (27.0-31.0); Mean Corpuscular Volume 93.3 fL (78.0-98.0); Platelet Count 190 10x3/uL (130-400); Red Blood Cell (RBC) Count 4.33 mill/uL (4.20-5.40); White Blood Cell (WBC) Count 9.05 10x3/uL (4.8-10.8)
[2025-06-13 06:07] LABS: Anion Gap 18 mmol/L (10-20); BUN (Urea Nitrogen) 29 mg/dL (9.8-20.1); Calc. Creatinine Clearance 50 mL/min (70-130); Calcium 10.1 mg/dL (7.8-10.44); Carbon Dioxide 22 mmol/L (23-31); Chloride 104 mmol/L (98-107); Glucose 317 mg/dL (83-110); Potassium 4.6 mmol/L (3.5-5.1); Sodium 139 mmol/L (136-145)
[2025-06-13] MEDS: Multivitamin W/ Minerals 1 TAB PO SCH (10:17)
[2025-06-13 11:36] VITALS: TEMP 97.9
[2025-06-13 15:40] VITALS: BMI 42.5
[2025-06-13 18:18] VITALS: BP 144/82
[2025-06-13] MEDS ORDERED: Apixaban 5 MG TAB PO SCH (21:00)
== END 2025-06-13 18:16 | disposition home or self-care (01) | DRG 660 ==
LOC: ERS 18:41 → ERHOLD 23:49 → T4-A 06-06 00:31
PROVIDERS: ADMIT Internal Medicine; ATTEND Hospitalist
PROC: 0T768DZ Dilation of Right Ureter with Intraluminal Device, Via Natural or Artificial Opening Endoscopic (ICD-10-PCS; principal; 2025-06-12)
DX: N39.0 Urinary tract infection, site not specified (principal); I13.0 Hypertensive heart and chronic kidney disease with heart failure and stage 1 through stage 4 chronic kidney disease, or unspecified chronic kidney disease; I50.22 Chronic systolic (congestive) heart failure; Z68.41 Body mass index [BMI] 40.0-44.9, adult; N17.9 Acute kidney failure, unspecified; I48.91 Unspecified atrial fibrillation; E11.21 Type 2 diabetes mellitus with diabetic nephropathy; I48.0 Paroxysmal atrial fibrillation; E66.9 Obesity, unspecified; N18.32 Chronic kidney disease, stage 3b; E78.5 Hyperlipidemia, unspecified; M10.9 Gout, unspecified; E03.9 Hypothyroidism, unspecified; B96.20 Unspecified Escherichia coli [E. coli] as the cause of diseases classified elsewhere; D63.1 Anemia in chronic kidney disease; Z88.2 Allergy status to sulfonamides; Z88.0 Allergy status to penicillin; Z88.8 Allergy status to other drugs, medicaments and biological substances; Z90.49 Acquired absence of other specified parts of digestive tract; Z90.710 Acquired absence of both cervix and uterus; Z98.890 Other specified postprocedural states; Z87.442 Personal history of urinary calculi; Z79.899 Other long term (current) drug therapy; Z79.4 Long term (current) use of insulin; Z79.84 Long term (current) use of oral hypoglycemic drugs; Z79.01 Long term (current) use of anticoagulants; Z79.890 Hormone replacement therapy
CPT/HCPCS: 36415; 36416; 71045; 74176; 74420; 80048; 80053; 81001; 82306; 82607; 82652; 83540; 83550; 83735; 83970; 84100; 85025; 87040; 87077; 87086; 87186; 96365; 96366; C1769; C2617; J1100; J1335; J1650; J1815; J1940; J2185; J2704; Q9967

== ENCOUNTER 2025-07-05 19:43 | Inpatient (IN) | payer MEDICARE ==
[2025-07-05 20:52] LABS: #Basophils Less than 0.03 10x3/uL (0.0-0.2); #Eosinophils Less than 0.03 10x3/uL (0.0-0.7); #Monocytes 0.18 10x3/uL (0.11-0.59); #Neutrophils 6.20 10x3/uL (1.40-6.50); %Basophils 0.1 % (0.0-1.0); %Eosinophils 0.0 % (0.0-10.0); %Lymphocytes 4.9 % (21.0-51.0); %Monocytes 2.7 % (0.0-10.0); %Neutrophils 92.0 % (42.0-75.0); Hematocrit 34.3 % (36.0-47.0); Hemoglobin 11.0 g/dL (12.0-16.0); Mean Corpuscular Hemoglobin 29.5 pg (27.0-31.0); Mean Corpuscular Volume 92.0 fL (78.0-98.0); Platelet Count 113 10x3/uL (130-400); Red Blood Cell (RBC) Count 3.73 mill/uL (4.20-5.40); White Blood Cell (WBC) Count 6.74 10x3/uL (4.8-10.8)
[2025-07-05] MEDS ORDERED: LevoFLOXacin 750 mg/D5W 150 ml Premix Bag ONE (20:52)
[2025-07-05 20:56] LABS: INR-International Normal Ratio 1.6; Prothrombin Time 19.5 sec (12.0-14.7)
[2025-07-05 20:57] LABS: PTT 34.4 sec (22.9-36.1)
[2025-07-05 20:59] LABS: ALT (SGPT) 13 U/L (Less than 34); AST (SGOT) 20 U/L (11-34); Albumin 2.8 g/dL (3.1-4.5); Alkaline Phosphatase 134 U/L (40-110); Anion Gap 13 mmol/L (10-20); BUN (Urea Nitrogen) 34 mg/dL (9.8-20.1); Bilirubin, Total 0.8 mg/dL (0.3-1.2); Calc. Creatinine Clearance 0 mL/min (70-130); Calcium 9.7 mg/dL (7.8-10.44); Carbon Dioxide 25 mmol/L (23-31); Chloride 102 mmol/L (98-107); Globulin 2.9 g/dL (2.4-3.5); Glucose 345 mg/dL (83-110); Potassium 3.3 mmol/L (3.5-5.1); Sodium 137 mmol/L (136-145)
[2025-07-05 22:17] LABS: Platelet Adequacy Comment Platelets Decreased; Polychromasia SLIGHT = 2-3 cells HPF (0-2)
[2025-07-05 22:35] LABS: CAUTI Indications for Culture Pelvic or flank pain; Glucose, Urine (Dipstick) 500 mg/dL (Negative); Leukocyte 500 Leu/uL (Negative); Protein, Urine (Dipstick) 10 mg/dL (Neg-Trace); RBC/HPF Greater than 50 HPF (0-3); Specific Gravity, Urine 1.008 (1.002-1.036); WBC/HPF Greater than 50 HPF (0-3)
[2025-07-05 22:39] LABS: Bacteria/HPF 1+ HPF (None Seen)
[2025-07-05 22:40] LABS: Urine Culture Reflex Yes Yes
[2025-07-05] MEDS ORDERED: Calcium Carbonate 500 MG ChewTAB PO PRN (23:37)
[2025-07-05] MEDS ORDERED: Ondansetron PF 4 MG/2 ML Vial IVP PRN (23:37)
[2025-07-05] MEDS ORDERED: Dextrose 50% Abboject 50 ML SYRINGE SLOW IVP PRN (23:40)
[2025-07-05] MEDS ORDERED: Glucagon 1 MG/ML KIT IM PRN (23:40)
[2025-07-06] MEDS: Potassium Chloride 20 MEQ in Premix 1 BAG IVPB SCH ×2 (02:11→04:12)
[2025-07-06 02:32] VITALS: BMI 43.0
[2025-07-06 02:35] LABS: ALT (SGPT) 11 U/L (Less than 34); AST (SGOT) 19 U/L (11-34); Albumin 2.6 g/dL (3.1-4.5); Alkaline Phosphatase 114 U/L (40-110); Anion Gap 12 mmol/L (10-20); BUN (Urea Nitrogen) 30 mg/dL (9.8-20.1); Bilirubin, Total 0.7 mg/dL (0.3-1.2); Calc. Creatinine Clearance 46 mL/min (70-130); Calcium 9.3 mg/dL (7.8-10.44); Carbon Dioxide 24 mmol/L (23-31); Chloride 104 mmol/L (98-107); Globulin 2.6 g/dL (2.4-3.5); Glucose 384 mg/dL (83-110); Potassium 3.5 mmol/L (3.5-5.1); Sodium 136 mmol/L (136-145)
[2025-07-06 02:48] LABS: #Basophils Less than 0.03 10x3/uL (0.0-0.2); #Eosinophils Less than 0.03 10x3/uL (0.0-0.7); #Monocytes 0.77 10x3/uL (0.11-0.59); #Neutrophils 8.21 10x3/uL (1.40-6.50); %Basophils 0.2 % (0.0-1.0); %Eosinophils 0.0 % (0.0-10.0); %Lymphocytes 6.8 % (21.0-51.0); %Monocytes 7.9 % (0.0-10.0); %Neutrophils 84.7 % (42.0-75.0); Hematocrit 32.0 % (36.0-47.0); Hemoglobin 9.9 g/dL (12.0-16.0); Mean Corpuscular Hemoglobin 29.0 pg (27.0-31.0); Mean Corpuscular Volume 93.8 fL (78.0-98.0); Platelet Count 110 10x3/uL (130-400); Red Blood Cell (RBC) Count 3.41 mill/uL (4.20-5.40); White Blood Cell (WBC) Count 9.70 10x3/uL (4.8-10.8)
[2025-07-06] MEDS: Acetaminophen 325 MG TAB PO PRN (03:32)
[2025-07-06] MEDS: cefTRIAXone\\ROCEPHIN 1 GM in Sodium Chloride 0.9% 100 ML IVPB SCH ×2 (04:12→09:24)
[2025-07-06] MEDS: Ketorolac Tromethamine 30 MG (1 mL) VIAL IVP SCH (04:40)
[2025-07-06] MEDS: dilTIAZem 25 MG/5 ML VIAL SLOW IVP SCH (04:44)
[2025-07-06] MEDS: Furosemide 40 MG TAB PO SCH (09:25)
[2025-07-06] MEDS: Apixaban 5 MG TAB PO SCH (09:25)
[2025-07-06] MEDS: Cholecalciferol 1,000 UNITS (25 MCG) TAB PO SCH (09:25)
[2025-07-06] MEDS: Multivitamin W/ Minerals 1 TAB PO SCH (09:25)
[2025-07-06] MEDS: dilTIAZem 25 MG/5 ML VIAL ONE (13:03)
[2025-07-06] MEDS ORDERED: dilTIAZem 25 MG/5 ML VIAL SLOW IVP SCH (13:45)
[2025-07-06] MEDS: Diltiazem HCl/D5W 125 MG in Premix 1 BAG IVPB SCH (13:53)
[2025-07-06] MEDS ORDERED: Gabapentin 100 MG CAP PO PRN (17:30)
[2025-07-06] MEDS: FLU (Fluad Triv) 25-26 (65UP)PF 45 MCG/0.5 ML Syringe IM ONE (18:19)
[2025-07-06] MEDS: Metoprolol Succinate XL 25 MG ER.TAB PO SCH (18:20)
[2025-07-06] MEDS: Allopurinol 100 MG TAB PO SCH (20:20)
[2025-07-06] MEDS: Insulin Glargine 30 UNITS/0.3 ML VIAL SC SCH (20:20)
[2025-07-06] MEDS ORDERED: Simvastatin 40 MG TAB PO SCH (21:00)
[2025-07-07 05:15] LABS: Anion Gap 13 mmol/L (10-20); BUN (Urea Nitrogen) 39 mg/dL (9.8-20.1); Calc. Creatinine Clearance 37 mL/min (70-130); Calcium 9.8 mg/dL (7.8-10.44); Carbon Dioxide 25 mmol/L (23-31); Chloride 105 mmol/L (98-107); Glucose 295 mg/dL (83-110); Potassium 3.8 mmol/L (3.5-5.1); Sodium 139 mmol/L (136-145)
[2025-07-07 05:20] LABS: #Basophils Less than 0.03 10x3/uL (0.0-0.2); #Eosinophils 0.05 10x3/uL (0.0-0.7); #Monocytes 0.59 10x3/uL (0.11-0.59); #Neutrophils 6.63 10x3/uL (1.40-6.50); %Basophils 0.2 % (0.0-1.0); %Eosinophils 0.6 % (0.0-10.0); %Lymphocytes 13.0 % (21.0-51.0); %Monocytes 6.8 % (0.0-10.0); %Neutrophils 77.0 % (42.0-75.0); Hematocrit 32.4 % (36.0-47.0); Hemoglobin 10.1 g/dL (12.0-16.0); Mean Corpuscular Hemoglobin 28.9 pg (27.0-31.0); Mean Corpuscular Volume 92.8 fL (78.0-98.0); Platelet Count 85 10x3/uL (130-400); Red Blood Cell (RBC) Count 3.49 mill/uL (4.20-5.40); White Blood Cell (WBC) Count 8.62 10x3/uL (4.8-10.8)
[2025-07-07] MEDS: Colchicine 0.6 MG TAB PO SCH (08:51)
[2025-07-07] MEDS: Insulin Glargine 30 UNITS/0.3 ML VIAL SC SCH (08:51)
[2025-07-07] MEDS: Apixaban 5 MG TAB PO SCH (08:51)
[2025-07-07] MEDS ORDERED: Diltiazem HCl/D5W 125 MG in Premix 1 BAG IVPB SCH (09:55)
[2025-07-07] MEDS: Estrogens, Conjugated 30 GM TUBE VAG SCH (16:14)
[2025-07-08 05:25] LABS: #Basophils 0.03 10x3/uL (0.0-0.2); #Eosinophils 0.22 10x3/uL (0.0-0.7); #Monocytes 0.78 10x3/uL (0.11-0.59); #Neutrophils 8.88 10x3/uL (1.40-6.50); %Basophils 0.3 % (0.0-1.0); %Eosinophils 2.0 % (0.0-10.0); %Lymphocytes 10.2 % (21.0-51.0); %Monocytes 7.0 % (0.0-10.0); %Neutrophils 80.0 % (42.0-75.0); Hematocrit 37.2 % (36.0-47.0); Hemoglobin 11.5 g/dL (12.0-16.0); Mean Corpuscular Hemoglobin 28.5 pg (27.0-31.0); Mean Corpuscular Volume 92.3 fL (78.0-98.0); Platelet Count 121 10x3/uL (130-400); Red Blood Cell (RBC) Count 4.03 mill/uL (4.20-5.40); White Blood Cell (WBC) Count 11.10 10x3/uL (4.8-10.8)
[2025-07-08 05:44] LABS: Anion Gap 12 mmol/L (10-20); BUN (Urea Nitrogen) 34 mg/dL (9.8-20.1); Calc. Creatinine Clearance 43 mL/min (70-130); Calcium 10.2 mg/dL (7.8-10.44); Carbon Dioxide 25 mmol/L (23-31); Chloride 101 mmol/L (98-107); Glucose 212 mg/dL (83-110); Potassium 3.4 mmol/L (3.5-5.1); Sodium 135 mmol/L (136-145)
[2025-07-09 05:30] LABS: #Basophils 0.03 10x3/uL (0.0-0.2); #Eosinophils 0.25 10x3/uL (0.0-0.7); #Monocytes 0.86 10x3/uL (0.11-0.59); #Neutrophils 6.15 10x3/uL (1.40-6.50); %Basophils 0.3 % (0.0-1.0); %Eosinophils 2.8 % (0.0-10.0); %Lymphocytes 17.1 % (21.0-51.0); %Monocytes 9.7 % (0.0-10.0); %Neutrophils 69.4 % (42.0-75.0); Hematocrit 36.9 % (36.0-47.0); Hemoglobin 11.6 g/dL (12.0-16.0); Mean Corpuscular Hemoglobin 28.5 pg (27.0-31.0); Mean Corpuscular Volume 90.7 fL (78.0-98.0); Platelet Count 144 10x3/uL (130-400); Red Blood Cell (RBC) Count 4.07 mill/uL (4.20-5.40); White Blood Cell (WBC) Count 8.87 10x3/uL (4.8-10.8)
[2025-07-09 05:42] LABS: Anion Gap 13 mmol/L (10-20); BUN (Urea Nitrogen) 38 mg/dL (9.8-20.1); Calc. Creatinine Clearance 43 mL/min (70-130); Calcium 10.2 mg/dL (7.8-10.44); Carbon Dioxide 27 mmol/L (23-31); Chloride 103 mmol/L (98-107); Glucose 166 mg/dL (83-110); Potassium 3.8 mmol/L (3.5-5.1); Sodium 139 mmol/L (136-145)
[2025-07-10 05:59] LABS: #Basophils 0.03 10x3/uL (0.0-0.2); #Eosinophils 0.31 10x3/uL (0.0-0.7); #Monocytes 0.90 10x3/uL (0.11-0.59); #Neutrophils 4.47 10x3/uL (1.40-6.50); %Basophils 0.4 % (0.0-1.0); %Eosinophils 4.2 % (0.0-10.0); %Lymphocytes 22.5 % (21.0-51.0); %Monocytes 12.1 % (0.0-10.0); %Neutrophils 60.1 % (42.0-75.0); Hematocrit 35.0 % (36.0-47.0); Hemoglobin 11.1 g/dL (12.0-16.0); Mean Corpuscular Hemoglobin 28.2 pg (27.0-31.0); Mean Corpuscular Volume 89.1 fL (78.0-98.0); Platelet Count 196 10x3/uL (130-400); Red Blood Cell (RBC) Count 3.93 mill/uL (4.20-5.40); White Blood Cell (WBC) Count 7.43 10x3/uL (4.8-10.8)
[2025-07-10 06:20] LABS: Anion Gap 13 mmol/L (10-20); BUN (Urea Nitrogen) 38 mg/dL (9.8-20.1); Calc. Creatinine Clearance 51 mL/min (70-130); Calcium 10.1 mg/dL (7.8-10.44); Carbon Dioxide 26 mmol/L (23-31); Chloride 103 mmol/L (98-107); Glucose 164 mg/dL (83-110); Potassium 4.2 mmol/L (3.5-5.1); Sodium 138 mmol/L (136-145)
[2025-07-10] MEDS: Insulin Glargine 30 UNITS/0.3 ML VIAL SC SCH (07:50)
[2025-07-10] MEDS: Estradiol 0.01% Vaginal Cream 42.5 gm Tube VAG SCH (13:58)
[2025-07-10] MEDS: Apixaban 5 MG TAB PO SCH (20:16)
[2025-07-10 20:33] VITALS: BP 151/65; TEMP 98.5
== END 2025-07-10 22:33 | disposition swing bed (61) | DRG 698 ==
LOC: ERS 19:43 → 2NO 23:05
PROVIDERS: ADMIT Student in an Organized Health Care Education/Training Program; ATTEND Internal Medicine
DX: T83.592A Infection and inflammatory reaction due to indwelling ureteral stent, initial encounter (principal); A41.51 Sepsis due to Escherichia coli [E. coli]; J96.00 Acute respiratory failure, unspecified whether with hypoxia or hypercapnia; N39.0 Urinary tract infection, site not specified; I50.22 Chronic systolic (congestive) heart failure; I48.20 Chronic atrial fibrillation, unspecified; Z16.24 Resistance to multiple antibiotics; Z16.12 Extended spectrum beta lactamase (ESBL) resistance; N17.9 Acute kidney failure, unspecified; Z68.41 Body mass index [BMI] 40.0-44.9, adult; I13.0 Hypertensive heart and chronic kidney disease with heart failure and stage 1 through stage 4 chronic kidney disease, or unspecified chronic kidney disease; Z88.0 Allergy status to penicillin; Z88.2 Allergy status to sulfonamides; Z90.710 Acquired absence of both cervix and uterus; Z90.49 Acquired absence of other specified parts of digestive tract; Z98.890 Other specified postprocedural states; E11.22 Type 2 diabetes mellitus with diabetic chronic kidney disease; N18.30 Chronic kidney disease, stage 3 unspecified; E11.40 Type 2 diabetes mellitus with diabetic neuropathy, unspecified; D63.1 Anemia in chronic kidney disease; E66.9 Obesity, unspecified; E87.6 Hypokalemia; K59.00 Constipation, unspecified; Z88.8 Allergy status to other drugs, medicaments and biological substances; Z23 Encounter for immunization; Z79.899 Other long term (current) drug therapy; Z79.4 Long term (current) use of insulin; M19.90 Unspecified osteoarthritis, unspecified site; E78.00 Pure hypercholesterolemia, unspecified; Y84.9 Medical procedure, unspecified as the cause of abnormal reaction of the patient, or of later complication, without mention of misadventure at the time of the procedure
CPT/HCPCS: 36415; 36416; 71045; 74176; 80048; 80053; 81001; 83605; 84484; 85025; 85610; 85730; 87040; 87077; 87086; 87149; 87186; 93005; 93010; 96374; J1815; J1885; J1956; J2185; J3480